=== PATIENT | male | born 1995 | race Caucasian/White ===

== ENCOUNTER 2024-01-07 10:03 | Emergency (ER) | payer OTHER, SELFPAY ==
--- NOTE | ~2024-01-07 | US_ITS ---
EXAMINATION: US soft tissue UE LT DATE: 01/07/2024 11:16 INDICATION: Hematoma versus abscess with palpable lump at the proximal left forearm TECHNIQUE: Multiple grayscale and Doppler ultrasound images of the region of concern at the posterior left forearm were obtained. COMPARISON: Radiographs dated 01/07/2024 FINDINGS: There is a 5.1 x 3.9 x 1.6 cm complex fluid collection with very hypoechoic regions by more echogenic thin internal septations in the subcutaneous tissues at the region of concern. There is no internal vascular flow or surrounding hyperemia on color Doppler. The fluid collection extends to wi thin 1 mm of the skin surface. The underlying musculature appears unremarkable. IMPRESSION: 1. 5.1 x 3.9 x 1.6 cm complex fluid collection is simultaneous tissues at the posterior left forearm without surrounding hyperemia and would favor hematoma over abscess. Reviewed, dictated and finalized at location B. IMPRESSION: 1. 5.1 x 3.9 x 1.6 cm complex fluid collection is simultaneous tissues at the p osterior left forearm without surrounding hyperemia and would favor hematoma ov er abscess.
--- NOTE | ~2024-01-07 | XR_ITS ---
EXAMINATION: XR elbow LT min 3V DATE: 01/07/2024 10:30 INDICATION: Left elbow pain, swelling and erythema post fall 3 weeks prior TECHNIQUE: Anteroposterior, two oblique and lateral views of the left elbow were obtained. COMPARISON: None. FINDINGS: Alignment is normal. No fracture or joint effusion. Joint spaces are normal. Soft tissue swelling pos terior to the proximal ulna. IMPRESSION: 1. No left elbow joint effusion or osseous abnormality. Reviewed, dictated and finalized at location B.
[2024-01-07 10:08] VITALS: BP 191/117; PULSE 120; RESP 23; TEMP 36.3; O2SAT 100
--- NOTE | 2024-01-07 10:53 | ED.UPPEXIN ---
HPI - Extremity Injury (Upper) General Chief Complaint: Extremity Injury, Upper Stated Complaint: wound to left elbow Time Seen by Provider: 01/07/24 10:22 Source: patient Mode of arrival: ambulatory Limitations: no limitations History of Present Illness HPI narrative: Patient is a 28-year-old male who presents to the ED with report of left elbow swelling. Patient reports he was at a football game a few weeks ago and sliding down one of the stair rails when he fell and hit his left elbow/forearm against the concrete. He has since developed an area of swelling to his proximal forearm. Denies significant pain in his left elbow/forearm/shoulder, but states the swelling has not improved over the last few weeks. Denies redness, warmth, fevers. Denies numbness. Review of Systems Review of Systems: CONSTITUTIONAL: Denies fever, chills, or sweats. MUSCULOSKELETAL: See HPI. NEUROLOGIC: Denies headache, dizziness, numbness, or weakness. All systems reviewed & are unremarkable except as noted in HPI and below Exam Narrative: GENERAL: Well appearing, well-nourished, non-toxic, in no acute distress. HEAD: Normocephalic, atraumatic. RESPIRATORY: Airway patent, respirations nonlabored. CARDIOVASCULAR: Regular rate and rhythm without murmurs, rubs, or gallops. Radial pulses strong and easily palpable. MUSCULOSKELETAL: Moves all extremities. No gross deformities. Full range of motion of left elbow and left shoulder. No limited range of motion. Left proximal dorsal forearm with large area of swelling/bruising present, consistent with hematoma. No swelling or tenderness over olecranon/medial/lateral epicondyles of left hip. No tenderness throughout left shoulder joint. No redness or warmth. No wounds. Sensation intact. SKIN: Warm, dry, normal color. NEURO: A&O X3. Speech clear. PSYCHIATRIC: Appropriate mood and affect. Normal interaction. Course Vital Signs Vital signs: Vital Signs Temperature 97.3 F L 01/07/24 10:08 Pulse Rate 120 H 01/07/24 10:08 Respiratory Rate 23 H 01/07/24 10:08 Blood Pressure 191/117 H 01/07/24 10:08 Pulse Oximetry 100 01/07/24 10:08 Oxygen Delivery Room Air 01/07/24 10:08 Temperature 98.7 F 01/07/24 11:46 Pulse Rate 109 H 01/07/24 11:46 Respiratory Rate 15 01/07/24 11:46 Blood Pressure 142/100 H 01/07/24 11:46 Pulse Oximetry 98 01/07/24 11:46 Oxygen Delivery Room Air 01/07/24 10:08 MDM - Extremity Injury (Upper) MDM Narrative Medical decision making narrative: Patient presented to ED status post injury he sustained several weeks ago with area of swelling to proximal forearm. Patient initially hypertensive, tachycardic upon arrival. Resolved without intervention. He was mildly anxious appearing upon initial evaluation. Tachycardia resolved by the time of my evaluation. Exam consistent with hematoma to proximal forearm. No signs of infection, no warmth/erythema. Afebrile. He denies fevers at home. Elbow x-ray without acute fracture. Soft tissue ultrasound was obtained and showing findings consistent with hematoma. Patient denies significant pain. Again no signs of infection. No indication for emergent drainage of hematoma. He is not on any blood thinners. He denies the swelling worsening over the last few weeks. Will place patient in [employer] bandage, referred to orthopedics/general surgery for further evaluation/potential drainage. Given return precautions. Discussed signs and symptoms of infection and patient voiced understanding. Discharged in stable condition. Vital signs stable at time of D/C. Medical Records Attestation: I reviewed the patient's medical records. Imaging Data Attestation: I personally reviewed and interpreted this imaging study as follows: Radiologist's impression: ITS Impressions Elbow X-Ray 01/07/24 10:32 IMPRESSION: 1. No left elbow joint effusion or osseous abnormality. Soft Tissue Ultrasound 01/07/24 11:25 IMPR
[2024-01-07 10:57] VITALS: BP 159/120; PULSE 120; RESP 14; O2SAT 99
[2024-01-07 11:33] VITALS: BP 132/99; PULSE 93; RESP 15; O2SAT 100
[2024-01-07 11:46] VITALS: BP 142/100; PULSE 109; RESP 15; TEMP 37.1; O2SAT 98
== END 2024-01-07 11:48 | disposition home or self-care (01) ==
PROVIDERS: Emergency Provider Physician Assistant; Referring Provider Family Medicine
DX: S50.12XA Contusion of left forearm, initial encounter (principal); W19.XXXA Unspecified fall, initial encounter
CPT/HCPCS: 73080; 76882; 99284